=== PATIENT | female | born 1970 | race African-American/Black ===

== ENCOUNTER 2025-01-22 01:46 | Emergency (ER) | payer MEDICAID ==
[~2025-01-22] VITALS: Ht 154.9 cm; Wt 58.0 kg
[2025-01-22 01:52] VITALS: O2SAT 99
[2025-01-22 02:21] VITALS: TEMP 37; O2SAT 100
[2025-01-22 04:32] VITALS: BP 181/101; PULSE 69; RESP 16
[2025-01-22] MEDS: LIDOCAINE 5% PATCH TOP STA (04:32)
[2025-01-22] MEDS: KETOROLAC 15MG/ML VIAL IM ONE (04:32)
[2025-01-22 04:40] LABS: BASOPHILS % 0.6 % (0.0-2.0); EOSINOPHILS % 1.3 % (0.0-5.0); HEMATOCRIT. 42.4 % (36.0-48.0); HEMOGLOBIN. 13.7 g/dL (12.0-16.0); LYMPHOCYTES % 31.0 % (20.0-50.0); MEAN PLATELET VOLUME 9.1 fl (7.4-10.4); MONOCYTES % 5.4 % (2.0-8.0); NEUTROPHILS % 61.7 % (40.0-76.0); PLATELET 210 x1000/uL (130-400); RED BLOOD CELL COUNT 5.13 mill/uL (4.2-5.4); RED CELL DISTRIBUTION WIDTH 14.7 % (11.6-14.6)
[2025-01-22 04:50] LABS: CREATININE 0.9 mg/dL (0.6-1.0)
[2025-01-22 04:52] LABS: TROPONIN I HIGH SENSITIVITY 11 ng/L (3.0-34)
[2025-01-22 05:03] LABS: UREA NITROGEN BLOOD 11 mg/dL (9-23)
[2025-01-22 06:36] LABS: TROPONIN I HIGH SENSITIVITY 10 ng/L (3.0-34)
[2025-01-22] MEDS ORDERED: LIDO700A30 TP (07:04)
[2025-01-22] MEDS ORDERED: CYCL10TA21 MT (07:04)
[2025-01-22] MEDS ORDERED: IBUP-1455 MT (07:04)
== END 2025-01-22 07:11 | disposition home or self-care (01) ==
LOC: ER 01:46
DX: M79.631 Pain in right forearm (principal); M79.661 Pain in right lower leg; R07.89 Other chest pain; M54.2 Cervicalgia; I10 Essential (primary) hypertension
CPT/HCPCS: 36415; 71045; 80048; 84484; 85025; 93005; 96372; 99285; J1885